=== PATIENT | male | born 1980 | race Caucasian/White ===

== ENCOUNTER 2016-12-22 12:16 | Emergency (ER) | payer OTHER ==
[2016-12-22] MEDS ORDERED: LORAZEPAM 1 MG TABLET PO ONE (12:49)
[2016-12-22] MEDS ORDERED: ONDANSETRON 4 MG TAB.RAPDIS PO ONE (12:52)
--- NOTE | 2016-12-22 12:55 | ER Document Report ---
ED Medical Screen (RME) - General Chief Complaint: Alcohol Withdrawl Stated Complaint: SHAKES,NAUSEA,VOMITING Time Seen by Provider: 12/22/16 12:37 Mode of Arrival: Ambulatory Information source: Patient TRAVEL OUTSIDE OF THE [place] IN LAST 30 DAYS: No - HPI Onset: This morning Onset/Duration: Gradual Quality of pain: No pain Associated Symptoms: Nausea, Vomiting, Other - TREMOR Exacerbated by: Denies Relieved by: Other - ETHANOL Similar symptoms previously: Yes Recently seen / treated by doctor: No - Related Data Smoking: Greater than 1 pack/day Frequency of alcohol use: Heavy Drug Abuse: Marijuana Allergies/Adverse Reactions: codeine [Codeine] Allergy (Verified 12/22/16 12:22) Penicillins Allergy (Verified 12/22/16 12:22) Home Medications: Current Home Medications No Home Medications 12/22/16 [History] Past Medical History - General Information source: Patient - Social History Chew tobacco use (# tins/day): No Frequency of alcohol use: Heavy Drug Abuse: Marijuana Lives with: Alone Family history: Reviewed & Not Pertinent - Medical History Medical History: Negative Renal/ Medical History: Denies: Hx Peritoneal Dialysis GI Medical History: Denies: Hx Cirrhosis, Hx Hepatitis Psychiatric Medical History: Reports: Hx Bipolar Disorder, Hx Depression - anxiety Past Surgical History: Reports: Hx Oral Surgery, Hx Tonsillectomy - and adnoids - Immunizations Immunizations up to date: Yes Hx Diphtheria, Pertussis, Tetanus Vaccination: Yes Review of Systems - Review of Systems Constitutional: Weakness EENT: No symptoms reported Cardiovascular: No symptoms reported Respiratory: No symptoms reported Gastrointestinal: See HPI Physical Exam - Vital signs Vitals: Temp Pulse Resp BP Pulse Ox 98.6 F 95 14 134/93 H 94 12/22/16 12:22 12/22/16 12:22 12/22/16 12:22 12/22/16 12:22 12/22/16 12:22 Interpretation: Hypertensive - General General appearance: Alert, Anxious, Other - TREMULOUS In distress: None Course - Vital Signs Vital signs: Temp Pulse Resp BP Pulse Ox 98.6 F 95 14 134/93 H 94 12/22/16 12:22 12/22/16 12:22 12/22/16 12:22 12/22/16 12:22 12/22/16 12:22
[2016-12-22 13:51] LABS: ABSOLUTE EOSINOPHILS # (AUTO) 0.1 10^3/uL (0.0-0.6); ABSOLUTE LYMPHOCYTES (AUTO) 1.2 10^3/uL (0.5-4.7); ABSOLUTE MONOCYTES (AUTO) 0.6 10^3/uL (0.1-1.4); ABSOLUTE NEUT (AUTO) 4.6 10^3/uL (1.7-8.2); BASOPHILS % (AUTO) 0.6 % (0-2); EOSINOPHILS % (AUTO) 1.6 % (0-6); HEMATOCRIT 48.8 % (37.9-51.0); HEMOGLOBIN 17.1 g/dL (13.5-17.0); HGB HCT DIFFERENCE 2.5; LYMPHOCYTES % (AUTO) 18.1 % (13-45); MEAN CORPUSCULAR VOLUME 94 fl (80-97); MONOCYTES % (AUTO) 9.2 % (3-13); RED BLOOD COUNT 5.18 10^6/uL (4.35-5.55); RED CELL DISTRIBUTION WIDTH 15.7 % (11.5-14.0); SEGMENTED NEUTROPHILS % (AUTO) 70.5 % (42-78); WHITE BLOOD COUNT 6.5 10^3/uL (4.0-10.5)
[2016-12-22 13:57] LABS: APPEARANCE,URINE CLEAR; BILIRUBIN,URINE NEGATIVE (NEGATIVE); GLUCOSE, URINE NEGATIVE (NEGATIVE); KETONES,URINE NEGATIVE (NEGATIVE); LEUKOCYTE ESTERASE,URINE NEGATIVE (NEGATIVE); NITRITE,URINE NEGATIVE (NEGATIVE); PROTEIN,URINE NEGATIVE (NEGATIVE); URINE SPECIFIC GRAVITY 1.001; UROBILINOGEN,URINE NEGATIVE mg/dL (<2.0)
[2016-12-22 14:10] LABS: URINE BARBITURATES SCREEN NEGATIVE; URINE METHADONE SCREEN NEGATIVE; URINE OPIATES LOW NEGATIVE; URINE PHENCYCLIDINE SCREEN NEGATIVE
[2016-12-22 14:13] LABS: ALANINE AMINOTRANSFERASE 209 U/L (21-72); ALBUMIN 4.8 g/dL (3.5-5.0); ALKALINE PHOSPHATASE 114 U/L (38-126); ANION GAP 13 (5-19); ASPARTATE AMINO TRANSFERASE 240 U/L (17-59); BILIRUBIN,DIRECT 0.4 mg/dL (0.0-0.4); BILIRUBIN,TOTAL 0.7 mg/dL (0.2-1.3); BLOOD UREA NITROGEN 3 mg/dL (7-20); CALCIUM 9.3 mg/dL (8.4-10.2); CARBON DIOXIDE 31 mmol/L (22-30); CHLORIDE 98 mmol/L (98-107); CREATININE RESULT 0.73 mg/dL (0.52-1.25); GLUCOSE 89 mg/dL (75-110); LIPASE 235.9 U/L (23-300); POTASSIUM 4.5 mmol/L (3.6-5.0); SODIUM 142.1 mmol/L (137-145); TOTAL PROTEIN 7.8 g/dL (6.3-8.2)
[2016-12-22 14:26] LABS: ALCOHOL 329 mg/dL (NONE DETECTED)
--- NOTE | 2016-12-22 14:29 | ER Document Report ---
ED Substance Abuse / Acc. OD - General Chief Complaint: Alcohol Withdrawl Stated Complaint: NAUSEA,VOMITING Time Seen by Provider: 12/22/16 12:37 Mode of Arrival: Ambulatory Information source: Patient TRAVEL OUTSIDE OF THE [place] IN LAST 30 DAYS: No - HPI Patient complains to provider of: Alcohol abuse Onset: Other - 2 months Onset/Duration: Persistent Quality of pain: No pain Associated Symptoms: None Similar symptoms previously: Yes Recently seen / treated by doctor: No Notes: Patient is a 36-year-old male who presents to the emergency room requesting assistance with alcohol detox, states that he has been drinking heavily for the last 2 months, at least 15-20 beers a day, he reports he has been drinking for 20 years but has been in rehab and detox before and has been clean as long as 8 months, states he lost his job 2 months ago and that is why he started drinking , his last drink was approximately 20 minutes prior to coming to the emergency room, he is also a smoker and admits to daily marijuana use - Related Data Allergies/Adverse Reactions: codeine [Codeine] Allergy (Verified 12/22/16 12:22) Penicillins Allergy (Verified 12/22/16 12:22) Past Medical History - General Information source: Patient - Social History Smoking Status: Current Every Day Smoker Chew tobacco use (# tins/day): No Frequency of alcohol use: Heavy Drug Abuse: Marijuana Lives with: Alone Family History: Reviewed & Not Pertinent, CVA, DM, Hypertension - Medical History Medical History: Negative Renal/ Medical History: Denies: Hx Peritoneal Dialysis GI Medical History: Denies: Hx Cirrhosis, Hx Hepatitis Psychiatric Medical History: Reports: Hx Bipolar Disorder, Hx Depression - anxiety Infectious Medical History: Denies: Hx Hepatitis Past Surgical History: Reports: Hx Oral Surgery, Hx Tonsillectomy - and adnoids - Immunizations Immunizations up to date: Yes Hx Diphtheria, Pertussis, Tetanus Vaccination: Yes Review of Systems - Review of Systems Constitutional: No symptoms reported EENT: No symptoms reported Cardiovascular: No symptoms reported Respiratory: No symptoms reported Gastrointestinal: No symptoms reported Genitourinary: No symptoms reported Male Genitourinary: No symptoms reported Musculoskeletal: No symptoms reported Skin: No symptoms reported Hematologic/Lymphatic: No symptoms reported Neurological/Psychological: See HPI -: Yes All other systems reviewed and negative Physical Exam - Vital signs Vitals: Temp Pulse Resp BP Pulse Ox 98.6 F 95 14 134/93 H 94 12/22/16 12:22 12/22/16 12:22 12/22/16 12:22 12/22/16 12:22 12/22/16 12:22 Interpretation: Normal - General General appearance: Appears well, Alert - HEENT Head: Normocephalic, Atraumatic Eyes: Normal Pupils: PERRL - Respiratory Respiratory status: No respiratory distress Chest status: Nontender Breath sounds: Normal Chest palpation: Normal - Cardiovascular Rhythm: Regular Heart sounds: Normal auscultation Murmur: No - Abdominal Inspection: Normal Distension: No distension Bowel sounds: Normal Tenderness: Nontender Organomegaly: No organomegaly - Back Back: Normal, Nontender - Extremities General upper extremity: Normal inspection, Nontender, Normal color, Normal ROM , Normal temperature General lower extremity: Normal inspection, Nontender, Normal color, Normal ROM , Normal temperature, Normal weight bearing. No: Brit's sign - Neurological Neuro grossly intact: Yes Cognition: Normal Orientation: AAOx4 Rohan Coma Scale Eye Opening: Spontaneous Rohan Coma Scale Verbal: Oriented Rohan Coma Scale Motor: Obeys Commands Rohan Coma Scale Total: 15 Speech: Normal Motor strength normal: LUE, RUE, LLE, RLE Sensory: Normal - Psychological Associated symptoms: Normal affect, Normal mood - Skin Skin Temperature: Warm Skin Moisture: Dry Skin Color: Normal Course - Re-evaluation Re-evalutation: 12/22/16 19:09 Patient's blood alcohol 329, no signs of detox today, he was provided with information to follow-up with detox rehab to get assistance with his alcohol dependence, he was also given prescriptions for both Librium and Ativan for use if he does go through withdrawal symptoms, patient was advised to return to the emergency room at any time if his symptoms should worsen or he has any additional concerns, patient acknowledges understanding and agreement with this - Vital Signs Vital signs: Temp Pulse Resp BP Pulse Ox 98.6 F 87 17 110/80 97 12/22/16 12:22 12/22/16 17:43 12/22/16 17:43 12/22/16 17:43 12/22/16 17:43 - Laboratory Result Diagrams: 12/22/16 13:25 12/22/16 13:25 Laboratory results interpreted by me: 12/22/16 12/22/16 13:25 13:25 Hgb 17.1 H RDW 15.7 H Carbon Dioxide 31 H BUN 3 L AST 240 H ALT 209 H Serum Alcohol 329 H* - EKG Interpretation by Me EKG shows normal: Sinus rhythm Rate: Normal Rhythm: NSR Discharge - Discharge Clinical Impression: Alcohol abuse Condition: Stable Disposition: HOME, SELF-CARE Instructions: Chronic Alcoholism ([facility]), Acute Alcohol Intoxication ([facility]) Additional Instructions: Follow-up with a mental health professional or detox rehab treatment center within the next 1-2 days. Return to the emergency room immediately if symptoms worsen or any additional concerns. Prescriptions: Chlordiazepoxide HCl [Librium 25 mg Capsule] 50 mg PO TID PRN #20 capsule PRN Reason: Lorazepam [Ativan 0.5 mg Tablet] 0.5 mg PO Q4 PRN #14 tab PRN Reason:
[2016-12-22 17:44] VITALS: BP 110/80
--- NOTE | 2016-12-22 18:58 | EKG REPORT ---
SEVERITY:- NORMAL ECG - SINUS RHYTHM : Confirmed by: Shannon Whitfield MD 22-Dec-2016 18:57:28
--- NOTE | 2016-12-23 16:58 | ER Document Report ---
ED Psych Disorder / Suicide - General Chief Complaint: Alcohol Withdrawl Stated Complaint: NAUSEA,VOMITING Time Seen by Provider: 12/22/16 12:37 Mode of Arrival: Ambulatory TRAVEL OUTSIDE OF THE [place] IN LAST 30 DAYS: No - HPI Notes: Patient disclosed that in 2005 he received a 1-1/2 year treatment for alcohol abuse treatment. He states that he was sober for 3 years however he did relapse after that for few months. Patient disclosed that he was able to achieve again and was sober for 8 years. Patient states that he would like resources for substance abuse rehab. Denies suicidal ideation stating "I love life." Patient is alert and orientated to person place time and circumstance. Mood is euthymic with congruent affect. Patient denies suicidal and homicidal ideation. No delusions are noted. Patient denies auditory visual hallucinations; patient is not demonstrating any behavior congruent with responding to internal stimuli. Thought process is currently organized and linear. Eye contact was well-maintained. Intellectual abilities appear to be within average range. Attention and concentration were good. Insight, judgment , impulse control are fair. 291.9 (F10.99) Alcohol abuse per history provided by patient Impression\\plan: Patient is considered psychiatrically clear for discharge. Patient does not meet IVC criteria per [place] GS 122C. Patient denies suicidal ideation. Patient requests resources for alcohol abuse. Provided resources for alcohol abuse. Clinician contacted [facility] at request of patient to see if his insurance is covered. Patient's insurance plan does not have coverage for substance abuse. [facility] provided contact information to clinician for patient for additional services in regards to his insurance. It was consulted and the care management of this patient; attending physician is in agreement with recommendations and disposition. - Related Data Allergies/Adverse Reactions: codeine [Codeine] Allergy (Verified 12/22/16 12:22) Penicillins Allergy (Verified 12/22/16 12:22) Past Medical History - General Information source: Patient - Social History Smoking Status: Current Every Day Smoker Chew tobacco use (# tins/day): No Frequency of alcohol use: Heavy Drug Abuse: Marijuana Lives with: Alone Family History: Reviewed & Not Pertinent, CVA, DM, Hypertension - Medical History Medical History: Negative Renal/ Medical History: Denies: Hx Peritoneal Dialysis GI Medical History: Denies: Hx Cirrhosis, Hx Hepatitis Psychiatric Medical History: Reports: Hx Bipolar Disorder, Hx Depression - anxiety Infectious Medical History: Denies: Hx Hepatitis Past Surgical History: Reports: Hx Oral Surgery, Hx Tonsillectomy - and adnoids - Immunizations Immunizations up to date: Yes Hx Diphtheria, Pertussis, Tetanus Vaccination: Yes Physical Exam - Vital signs Vitals: Temp Pulse Resp BP Pulse Ox 98.6 F 95 14 134/93 H 94 12/22/16 12:22 12/22/16 12:22 12/22/16 12:22 12/22/16 12:22 12/22/16 12:22 Course - Vital Signs Vital signs: Temp Pulse Resp BP Pulse Ox 98.6 F 87 17 110/80 97 12/22/16 12:22 12/22/16 17:43 12/22/16 17:43 12/22/16 17:43 12/22/16 17:43 - Laboratory Result Diagrams: 12/22/16 13:25 12/22/16 13:25 Laboratory results interpreted by me: 12/22/16 12/22/16 13:25 13:25 Hgb 17.1 H RDW 15.7 H Carbon Dioxide 31 H BUN 3 L AST 240 H ALT 209 H Serum Alcohol 329 H* Discharge - Discharge Clinical Impression: Alcohol abuse Condition: Stable Disposition: HOME, SELF-CARE Instructions: Acute Alcohol Intoxication ([facility]), Chronic Alcoholism ([facility]) Additional Instructions: Follow-up with a mental health professional or detox rehab treatment center within the next 1-2 days. Return to the emergency room immediately if symptoms worsen or any additional concerns. Prescriptions: Chlordiazepoxide HCl [Librium 25 mg Capsule] 50 mg PO TID PRN #20 capsule PRN Reason: Lorazepam [Ativan 0.5 mg Tablet] 0.5 mg PO Q4 PRN #14 tab PRN Reason:
== END 2016-12-22 17:43 | disposition home or self-care (01) ==
LOC: ER 12:16
DX: F10.20 Alcohol dependence, uncomplicated (principal); Y90.8 Blood alcohol level of 240 mg/100 ml or more; F17.200 Nicotine dependence, unspecified, uncomplicated; Z56.0 Unemployment, unspecified; Z88.5 Allergy status to narcotic agent; Z88.0 Allergy status to penicillin
CPT/HCPCS: 93005; 99285; 36415; 80307 ×2; 83690; 83735; 85025; 80053; 81001; 93010; S0119

== ENCOUNTER 2017-07-03 16:54 | Emergency (ER) | payer OTHER ==
--- NOTE | 2017-07-03 18:10 | ER Document Report ---
ED Skin Rash/Insect Bite/Abscs - General Chief Complaint: Abscess Stated Complaint: SKIN PROBLEM Time Seen by Provider: 07/03/17 18:02 Mode of Arrival: Ambulatory Information source: Patient Notes: Patient is a 37-year-old male who presents to the ER today for possible abscess to his left lower jaw 2 weeks. Patient states it has gotten larger over the past 2 weeks and more painful. He denies any drainage, history of MRSA, fevers or chills. TRAVEL OUTSIDE OF THE [place] IN LAST 30 DAYS: No - Related Data Allergies/Adverse Reactions: codeine [Codeine] Allergy (Verified 07/03/17 16:55) Penicillins Allergy (Verified 07/03/17 16:55) Past Medical History - General Information source: Patient - Social History Smoking Status: Current Every Day Smoker Chew tobacco use (# tins/day): No Frequency of alcohol use: None Drug Abuse: Marijuana Family History: Reviewed & Not Pertinent, CVA, DM, Hypertension Patient has suicidal ideation: No Patient has homicidal ideation: No Renal/ Medical History: Denies: Hx Peritoneal Dialysis GI Medical History: Denies: Hx Cirrhosis, Hx Hepatitis Psychiatric Medical History: Reports: Hx Bipolar Disorder, Hx Depression - anxiety Infectious Medical History: Denies: Hx Hepatitis Past Surgical History: Reports: Hx Oral Surgery, Hx Tonsillectomy - and adnoids - Immunizations Immunizations up to date: Yes Hx Diphtheria, Pertussis, Tetanus Vaccination: Yes Review of Systems - Review of Systems Constitutional: No symptoms reported EENT: No symptoms reported Cardiovascular: No symptoms reported Respiratory: No symptoms reported Gastrointestinal: No symptoms reported Genitourinary: No symptoms reported Male Genitourinary: No symptoms reported Musculoskeletal: No symptoms reported Skin: See HPI Hematologic/Lymphatic: No symptoms reported Neurological/Psychological: No symptoms reported Physical Exam - Vital signs Vitals: Temp Pulse Resp BP Pulse Ox 98.9 F 78 16 111/68 95 07/03/17 17:09 07/03/17 17:09 07/03/17 17:09 07/03/17 17:09 07/03/17 17:09 - Notes Notes: PHYSICAL EXAMINATION: GENERAL: Well-appearing and in no acute distress. HEAD: Atraumatic, normocephalic. EYES: Pupils equal round and reactive to light, extraocular movements intact, sclera anicteric, conjunctiva are normal. NECK: Normal range of motion, supple without lymphadenopathy LUNGS: CTAB and equal. No wheezes rales or rhonchi. HEART: Regular rate and rhythm without murmur ABDOMEN: Soft, no tenderness. No guarding, no rebound BACK: no vertebral tenderness, normal ROM GI/: no CVA tenderness EXTREMITIES: Normal range of motion, no pitting edema. No cyanosis. NEUROLOGICAL: Cranial nerves grossly intact. Normal sensory/motor exams. PSYCH: Normal mood, normal affect. SKIN: Warm, Dry, normal turgor, erythematous, fluctuant abscess approximately 2 cm in diameter to the left lower jawline, mildly tender to palpation Course - Re-evaluation Re-evalutation: 07/03/17 18:43 Abscess was incised and drained successfully, culture is pending at this time. Patient will be placed on Bactrim. - Vital Signs Vital signs: Temp Pulse Resp BP Pulse Ox 98.9 F 78 16 111/68 95 07/03/17 17:09 07/03/17 17:09 07/03/17 17:09 07/03/17 17:09 07/03/17 17:09 Discharge - Discharge Clinical Impression: Abscess Condition: Stable Disposition: HOME, SELF-CARE Additional Instructions: Return immediately for any new or worsening symptoms. Follow up with primary care provider, call tomorrow to make followup appointment. Prescriptions: Sulfamethoxazole/Trimethoprim [Bactrim Ds Tablet] 1 each PO BID #20 tablet Forms: Return to Work
[2017-07-03] MEDS: LIDOCAINE 1% INJ-PF (10 MG/ML) 30 ML SDV INJ ONE (18:27)
[2017-07-03 19:07] VITALS: BP 111/74
== END 2017-07-03 19:05 | disposition home or self-care (01) ==
LOC: ER 16:54
DX: L02.01 Cutaneous abscess of face (principal); F17.200 Nicotine dependence, unspecified, uncomplicated; Z88.5 Allergy status to narcotic agent; Z88.2 Allergy status to sulfonamides
CPT/HCPCS: 87070; 87075; 87077; 87186; 87205; 99283

== ENCOUNTER 2018-06-02 11:52 | Emergency (ER) | payer SELFPAY ==
[2018-06-02] MEDS ORDERED: SULFAMETHOXAZOLE/TRIMETHOPRIM 800-160 MG TABLET PO ONE (13:24)
--- NOTE | 2018-06-02 13:28 | ER Document Report ---
HPI - HPI Patient complains to provider of: Abscess Time Seen by Provider: 06/02/18 13:24 Onset: Other - 5 days Onset/Duration: Persistent Quality of pain: Achy Pain Level: 4 Context: Patient complains of abscess to buttock for the past 5 days. Patient states the area has not started to drain which got him concerned. Patient states he has had an abscess in this location in the past. Patient denies any fever. Associated Symptoms: Other - Abscess to buttock. denies: Fever Exacerbated by: Movement Relieved by: Denies Similar symptoms previously: Yes Recently seen / treated by doctor: No - ROS ROS below otherwise negative: Yes Systems Reviewed and Negative: Yes All other systems reviewed and negative - CONSTITUTIONAL Constitutional: DENIES: Fever, Chills - RESPIRATORY Respiratory: DENIES: Trouble Breathing, Coughing - GASTROINTESTINAL Gastrointestinal: DENIES: Abdominal Pain, Nausea, Black / Bloody Stools - MUSCULOSKELETAL Musculoskeletal: DENIES: Extremity pain - DERM Skin Color: Normal Notes: Abscess Past Medical History - General Information source: Patient - Social History Smoking Status: Current Every Day Smoker Chew tobacco use (# tins/day): No Smoking Education Provided: Yes Frequency of alcohol use: None Drug Abuse: Marijuana Occupation: frozen foods manager Family History: Reviewed & Not Pertinent, CVA, DM, Hypertension Patient has suicidal ideation: No Patient has homicidal ideation: No Renal/ Medical History: Denies: Hx Peritoneal Dialysis GI Medical History: Denies: Hx Cirrhosis, Hx Hepatitis Psychiatric Medical History: Reports: Hx Bipolar Disorder, Hx Depression - anxiety Infectious Medical History: Denies: Hx Hepatitis Past Surgical History: Reports: Hx Oral Surgery, Hx Tonsillectomy - and adnoids - Immunizations Immunizations up to date: Yes Hx Diphtheria, Pertussis, Tetanus Vaccination: Yes Vertical Provider Document - CONSTITUTIONAL Agree With Documented VS: Yes Exam Limitations: No Limitations General Appearance: WD/WN, No Apparent Distress - INFECTION CONTROL TRAVEL OUTSIDE OF THE [place] IN LAST 30 DAYS: No - HEENT HEENT: Atraumatic, Normocephalic - NECK Neck: Normal Inspection - RESPIRATORY Respiratory: Breath Sounds Normal, No Respiratory Distress - CARDIOVASCULAR Cardiovascular: Regular Rate, Regular Rhythm - BACK Back: Normal Inspection - MUSCULOSKELETAL/EXTREMETIES Musculoskeletal/Extremeties: ARGENIS YANG - NEURO Level of Consciousness: Awake, Alert, Appropriate Motor/Sensory: No Motor Deficit - DERM Integumentary: Warm, Dry, Abscess - Spontaneously draining abscess to the left buttock area near the rectum, no perianal involvement. Abscess diameter about 2 cm, RN Marilu as standby during examination Course - Vital Signs Vital signs: Temp Pulse Resp BP Pulse Ox 98.6 F 92 14 121/82 100 06/02/18 11:56 06/02/18 11:56 06/02/18 11:56 06/02/18 11:56 06/02/18 11:56 Discharge - Discharge Clinical Impression: Abscess Condition: Stable Disposition: HOME, SELF-CARE Instructions: Abscess (OM), Trimethoprim-Sulfa (OM) Additional Instructions: Return immediately for any new or worsening symptoms Followup with your primary care provider, call tomorrow to make a followup appointment Culture is pending, we will call if you need any different treatment Prescriptions: Sulfamethoxazole/Trimethoprim [Bactrim Ds Tablet] 1 each PO BID #20 tablet Forms: Smoking Cessation Education, Return to Work Referrals: [facility] [Provider Group] - Follow up as needed
[2018-06-02 13:35] VITALS: BP 113/72
== END 2018-06-02 13:37 | disposition home or self-care (01) ==
LOC: ER 11:52
DX: L02.31 Cutaneous abscess of buttock (principal); F17.200 Nicotine dependence, unspecified, uncomplicated
CPT/HCPCS: 87070; 87075; 87077; 87186; 87205; 99283